=== PATIENT | female | born 1955 | race Caucasian/White ===

== ENCOUNTER 2019-10-06 15:33 | Emergency (ER) | payer MEDICARE ==
[2019-10-06 16:32] LABS: BASOPHILS # (AUTO) 0.1 10^3/uL (0.0-0.1); BASOPHILS % (AUTO) 0.7 %; EOSINOPHILS # (AUTO) 0.2 10^3/uL (0.0-0.7); HGB - HEMOGLOBIN 16.4 g/dL (12.0-16.0); LYMPHOCYTES # (AUTO) 1.6 10^3/uL (1.5-3.5); LYMPHOCYTES % (AUTO) 20.9 %; MEAN CORPUSCULAR HEMOGLOBIN 32.9 pg (27.0-31.0); MEAN CORPUSCULAR HGB CONC 33.5 g/dL (32.0-36.0); MEAN PLATELET VOLUME 8.7 fL (7.9-10.8); MONOCYTES # (AUTO) 0.9 10^3/uL (0.0-1.0); MONOCYTES % (AUTO) 11.5 %; NEUTROPHILS # (AUTO) 4.8 10^3/uL (1.5-6.6); NEUTROPHILS % (AUTO) 63.4 %; PLT - PLATELET COUNT 363 10^3/uL (130-450); RED BLOOD COUNT 4.99 10^6/uL (4.20-5.40); RED CELL DISTRIBUTION WIDTH 13.9 % (12.0-15.0); WHITE BLOOD COUNT 7.6 x10^3/uL (4.8-10.8)
[2019-10-06 16:40] LABS: PT - PROTHROMBIN TIME 11.2 secs (9.9-12.6)
[2019-10-06 16:46] LABS: ALBUMIN 4.2 g/dL (3.2-5.5); ALBUMIN/GLOBULIN RATIO 1.1 (1.0-2.2); BILIRUBIN,TOTAL 0.7 mg/dL (0.2-1.0); CALCIUM 9.5 mg/dL (8.5-10.3); CREATININE 0.8 mg/dL (0.4-1.0); TOTAL PROTEIN 8.2 g/dL (6.7-8.2)
[2019-10-06 16:47] LABS: PARTIAL THROMBOPLASTIN TIME 35.4 secs (24.9-33.3)
[2019-10-06] MEDS ORDERED: oxyCODONE 5 MG TABLET PO STA ×2 (17:23→19:11)
--- NOTE | 2019-10-06 17:27 | ED Physician Documentation ---
PD HPI ABD PAIN - Stated complaint Stated Complaint: DIARRHEA - Chief complaint Chief Complaint: Abd Pain - History obtained from History obtained from: Patient - History of Present Illness Timing - onset: Other (64-year-old woman with remote history of breast cancer, non-Hodgkin's lymphoma, and perforated viscus with ileostomy subsequently reversed, that was about 5 years ago. Last 5 days she started to have nausea with one episode of vomiting, has not vomited since but then developed diarrhea which over the last 2 to 3 days has been bloody. She denies fevers or chills. She had diffuse abdominal pain yesterday which now is on the left lower quadrant and pelvis. Last colonoscopy was about 5 years ago with some polyps, otherwise negative.) Review of Systems Ten Systems: 10 systems reviewed and negative Constitutional: reports: Fatigue. denies: Fever, Chills Cardiac: denies: Chest pain / pressure, Palpitations Respiratory: denies: Dyspnea, Cough PD PAST MEDICAL HISTORY - Present Medications Home Medications: Ambulatory Orders Medication Instructions Recorded Confirmed Amox/Clav 875/125 [Augmentin] 1 each PO Q12H #20 tablet 10/06/19 Oxycodone HCl/Acetaminophen 1 - 2 each PO Q6H PRN #14 tablet 10/06/19 [Percocet 5-325 mg Tablet] - Allergies Allergies/Adverse Reactions: Allergies Allergy/AdvReac Type Severity Reaction Status Date / Time No Known Drug Allergies Allergy Verified 10/06/19 17:08 PD ED PE NORMAL - Vitals Vital signs reviewed: Yes - General General: Alert and oriented X 3, No acute distress - HEENT HEENT: PERRL, EOMI - Neck Neck: Supple, no meningeal sign, No bony TTP - Cardiac Cardiac: RRR, No murmur - Respiratory Respiratory: No respiratory distress, Other (rhonchorous) - Abdomen Abdomen: Other (Hyperactive bowel tones, TTP LLQ, no surgical signs) - Back Back: No CVA TTP, No spinal TTP - Derm Derm: Normal color, Warm and dry - Extremities Extremities: No edema, No calf tenderness / cord - Neuro Neuro: Alert and oriented X 3, Normal speech Results - Vitals Vitals: Vital Signs - 24 hr 10/06/19 10/06/19 16:00 18:43 Temperature 37.1 C 36.7 C Heart Rate 102 H 99 Respiratory 18 20 Rate Blood Pressure 144/91 H 134/95 H O2 Saturation 99 95 Oxygen O2 Source Room air - Labs Labs: Laboratory Tests 10/06/19 10/06/19 10/06/19 16:20 16:20 16:20 WBC 7.6 RBC 4.99 Hgb 16.4 H Hct 48.9 H MCV 98.0 MCH 32.9 H MCHC 33.5 RDW 13.9 Plt Count 363 MPV 8.7 Neut # (Auto) 4.8 Lymph # (Auto) 1.6 [place] # (Auto) 0.9 Eos # (Auto) 0.2 Baso # (Auto) 0.1 Absolute Nucleated RBC 0.00 Nucleated RBC % 0.0 PT 11.2 INR 1.0 APTT 35.4 H Sodium Potassium Chloride Carbon Dioxide Anion Gap BUN Creatinine Estimated GFR (MDRD) Glucose Calcium Total Bilirubin AST ALT Alkaline Phosphatase Total Protein Albumin Globulin Albumin/Globulin Ratio Lipase Urine Color Urine Clarity Urine pH Ur Specific [place] Urine Protein Urine Glucose (UA) Urine Ketones Urine Occult Blood Urine Nitrite Urine Bilirubin Urine Urobilinogen Ur Leukocyte Esterase Ur Microscopic Review Urine Culture Comments Blood Type AB POSITIVE Antibody Screen NEGATIVE 10/06/19 10/06/19 16:20 17:18 WBC RBC Hgb Hct MCV MCH MCHC RDW Plt Count MPV Neut # (Auto) Lymph # (Auto) [place] # (Auto) Eos # (Auto) Baso # (Auto) Absolute Nucleated RBC Nucleated RBC % PT INR APTT Sodium 135 Potassium 4.1 Chloride 99 L Carbon Dioxide 26 Anion Gap 10.0 BUN 12 Creatinine 0.8 Estimated GFR (MDRD) 72 L Glucose 99 Calcium 9.5 Total Bilirubin 0.7 AST 21 ALT 18 Alkaline Phosphatase 99 Total Protein 8.2 Albumin 4.2 Globulin 4.0 Albumin/Globulin Ratio 1.1 Lipase 30 Urine Color YELLOW Urine Clarity CLEAR Urine pH 7.5 Ur Specific [place] 1.015 Urine Protein NEGATIVE Urine Glucose (UA) NEGATIVE Urine Ketones NEGATIVE Urine Occult Blood NEGATIVE Urine Nitrite NEGATIVE Urine Bilirubin NEGATIVE Urine Urobilinogen 0.2 (NORMAL) Ur Leukocyte Esterase NEGATIVE Ur Microscopic Review NOT INDICATED Urine Culture Comments NOT INDICATED Blood Type Antibody Screen - Rads (name of study) CT A/P Radiology: EMP read contemporaneously (Findings consistent with diverticulitis, indeterminate 17 mm right adrenal lesion.) PD MEDICAL DECISION MAKING - ED course ED course: 64-year-old woman with vomiting and diarrhea as well as abdominal pain. Found on work-up to have diverticulitis. Cipro and Flagyl was considered for outpatient treatment but she drinks almost daily and wanted something else so Augmentin was chosen. Follow-up colonoscopy and imaging on the adrenal lesion were discussed with the patient and her son. Departure - Departure Disposition: 01 Home, Self Care Clinical Impression: Diverticulitis of gastrointestinal tract Condition: Good Record reviewed to determine appropriate education?: Yes Instructions: ED Diverticulitis Prescriptions: Amox/Clav 875/125 [Augmentin] 1 each PO Q12H #20 tablet Oxycodone HCl/Acetaminophen [Percocet 5-325 mg Tablet] 1 - 2 each PO Q6H PRN #14 tablet PRN Reason: pain Comments: As discussed, you will need a follow-up colonoscopy in about 8 weeks, talk with your doctor about a referral for this, also you have a small mass on your adrenal gland, talk with your doctor about further imaging for this. Return for new worsening symptoms.
[2019-10-06] MEDS ORDERED: IOVERSOL 320 100 ML VIAL IVP ONE ×2 (17:29→18:21)
[2019-10-06 17:44] LABS: BILIRUBIN,URINE NEGATIVE (NEGATIVE); GLUCOSE, URINE (UA) NEGATIVE (NEGATIVE); KETONES,URINE (UA) NEGATIVE (NEGATIVE); LEUKOCYTE ESTERASE, URINE NEGATIVE (NEGATIVE); NITRITE,URINE NEGATIVE (NEGATIVE); OCCULT BLOOD,URINE NEGATIVE (NEGATIVE); PH,URINE 7.5 PH (5.0-7.5); PROTEIN,URINE NEGATIVE (NEGATIVE); UROBILINOGEN,URINE 0.2 (NORMAL) E.U./dL (NORMAL)
[2019-10-06 17:49] LABS: CLARITY,URINE CLEAR (CLEAR)
[2019-10-06 18:44] VITALS: BP 134/95
--- NOTE | 2019-10-06 18:54 | CT Report ---
Reason: IV and PO, abd pain, LLQ pain Procedure Date: 10/06/2019 Accession Number: [id number] / [id number] Procedure: CT - Abdomen/Pelvis W CPT Code: Final Report FULL RESULT: EXAM: CT ABDOMEN AND PELVIS EXAM DATE: 10/06/2019 06:19 PM. CLINICAL HISTORY: IV and PO, abd pain, LLQ pain. COMPARISONS: None. TECHNIQUE: Routine helical CT imaging was performed through the abdomen and pelvis. IV contrast: OPTI 320 90ML. Enteric contrast: No. Reconstructions: Coronal and sagittal. In accordance with CT protocol optimization, one or more of the following dose reduction techniques were utilized for this exam: automated exposure control, adjustment of mA and/or KV based on patient size, or use of iterative reconstructive technique. FINDINGS: Lung Bases: A small hiatal hernia limited to the posterior mediastinum. Mild bilateral dependent atelectasis and scarring. Liver: Normal. No masses. Gallbladder/Bile Ducts: Unremarkable. Spleen: Normal. Pancreas: Normal. Adrenal Glands: A 17 mm isodense lesion in right adrenal gland with attenuation of 58 HU. Further evaluation to be considered on CT or MR adrenal mass protocol. Kidneys: Normal. No masses or hydronephrosis. Peritoneal Cavity/Bowel: Submucosal edema/colonic wall thickening and multiple colonic diverticuli involving the splenic flexure (image 31 on series 5). Findings are concerning for acute diverticulitis. Underlying colonic mass is not likely, however cannot be completely excluded. Normal appendix in right lower quadrant. Pelvic Organs: Status post hysterectomy. Normal-appearing ovaries. Vasculature: No aneurysms or other significant abnormality. Bones: Chronic appearing anterior wedge compression fracture deformity of L1 vertebral body with 50% loss of vertical body height. Other: None. IMPRESSION: Submucosal edema/colonic wall thickening and multiple colonic diverticuli involving splenic flexure. Findings concerning for acute diverticulitis. Underlying colonic mass is not likely, however cannot be completely excluded. An indeterminate 17 mm right adrenal lesion. Further evaluation is recommended on CT or MR adrenal mass protocol. A small hiatal hernia. RADIA
[2019-10-06] MEDS ORDERED: AMOX/CLAV 875 MG/125 MG TABLET PO STA (19:11)
== END 2019-10-06 19:38 | disposition home or self-care (01) ==
LOC: ED 15:33
DX: K57.32 Diverticulitis of large intestine without perforation or abscess without bleeding (principal); E27.8 Other specified disorders of adrenal gland; K44.9 Diaphragmatic hernia without obstruction or gangrene; Z85.3 Personal history of malignant neoplasm of breast; Z85.72 Personal history of non-Hodgkin lymphomas; Z86.010 Personal history of colon polyps
CPT/HCPCS: 36415; 74177; 80053; 81003; 83690; 85025; 85610; 85730; 86850; 86900; 86901; 99284; A9270; Q9967; 81001; 87086

== ENCOUNTER 2021-11-10 15:31 | Emergency (ER) | payer MEDICARE ==
--- NOTE | 2021-11-10 16:26 | ED Physician Documentation ---
History of Present Illness - Stated complaint Stated Complaint: NECK PX, SWOLLEN LEGS FEET,FEMALE - Chief complaint Chief Complaint: Wound - Additonal information Additional information: 66-year-old female presents emergency department for evaluation of 2 concerns 1. She is reporting bilateral lower extremity edema that has been getting progressively worse for 1 month. She reports in the morning when she wakes up it is tolerable however as the day progresses she finds that her legs are more swollen and more painful. She is denying any chest pain or shortness of air. Does not have a history of congestive heart failure and does not take any diuretic. 2. Her concern is that she has had these lesions on her external labia for about 1 year. Her left labia has a large swollen painful cyst that began around [place] last year. Her right labia has a superficial ulceration that sometimes drains purulence that is been present about 3 months. She states that she has talked to her primary care doctor about this but is unclear what the determination of the concern was. She just wants a second opinion in the emergency department. Review of Systems Constitutional: denies: Fever, Chills Eyes: reports: Reviewed and negative Nose: reports: Reviewed and negative Throat: reports: Reviewed and negative Cardiac: reports: Pedal edema. 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 - Present Medications Home Medications: Ambulatory Orders Medication Instructions Recorded Confirmed Amox/Clav 875/125 [Augmentin] 1 each PO Q12H #20 tablet 10/06/19 Oxycodone HCl/Acetaminophen 1 - 2 each PO Q6H PRN #14 tablet 10/06/19 [Percocet 5-325 mg Tablet] - Allergies Allergies/Adverse Reactions: Allergies Allergy/AdvReac Type Severity Reaction Status Date / Time No Known Drug Allergies Allergy Verified 11/10/21 15:44 - Social History Does the pt smoke?: Yes Smoking Status: Current every day smoker Does the pt drink ETOH?: Yes Does the pt have substance abuse?: No PD ED PE NORMAL - General General: Alert and oriented X 3, No acute distress - HEENT HEENT: PERRL - Neck Neck: Supple, no meningeal sign, No adenopathy, Thyroid normal, No JVD - Cardiac Cardiac: RRR, No murmur, No gallop, Strong equal pulses, Other (Superficial pitting edema bilateral lower extremities does not extend to the calves) - Respiratory Respiratory: No respiratory distress, Clear bilaterally - Abdomen Abdomen: Normal bowel sounds, Soft - Female Female : Early Intervention Specialist present, Other (2 cm soft fluctuant left labia majora cyst mildly tender to touch but no erythema or drainage. Right labia has a shallow 0.5 cm painful lesion. Clear serous drainage no surrounding erythema) - Derm Derm: Normal color, Warm and dry - Extremities Extremities: No deformity - Neuro Neuro: Alert and oriented X 3 Eye Opening: Spontaneous Motor: Obeys Commands Verbal: Oriented GCS Score: 15 Results - Vitals Vitals: Vital Signs - 24 hr 11/10/21 15:38 Temperature 36.5 C Heart Rate 96 Respiratory 20 Rate Blood Pressure 146/96 H O2 Saturation 94 Oxygen O2 Source Room air - EKG (time done) 1626 Rate: Rate (enter#) (86) Rhythm: NSR [place]: Normal Intervals: Prolonged DC QRS: Normal Ischemia: Normal ST segments Compare to prior EKG: Old EKG unavailable Computer interpretation: Agree with computer - Labs Labs: Laboratory Tests 11/10/21 11/10/21 11/10/21 16:26 16:26 16:26 WBC 9.4 RBC 4.43 Hgb 15.2 Hct 44.8 MCV 101.1 H MCH 34.3 H MCHC 33.9 RDW 13.5 Plt Count 319 MPV 9.1 Neut # (Auto) 6.8 H Lymph # (Auto) 1.4 L [place] # (Auto) 0.9 Eos # (Auto) 0.3 Baso # (Auto) 0.1 Absolute Nucleated RBC 0.00 Nucleated RBC % 0.0 Sodium 132 L Potassium 4.0 Chloride 98 L Carbon Dioxide 26 Anion Gap 8.0 BUN 8 Creatinine 0.8 Estimated GFR (MDRD) 72 L Glucose 108 H Calcium 9.2 Total Bilirubin 0.5 AST 18 ALT 16 Alkaline Phosphatase 86 B-Natriuretic Peptide 25 Total Protein 7.6 Albumin 3.9 Globulin 3.7 Albumin/Globulin Ratio 1.1 Lipase 31 - Rads (name of study) CXR Radiology: Final report received (No acute cardiopulmonary process) PD MEDICAL DECISION MAKING - ED course Complexity details: reviewed results, re-evaluated patient, considered differential, d/w patient ED course: 66-year-old female presents emergency department for evaluation of lower extremity swelling that she states is mostly absent in the morning but gets worse during the day making difficulty walking. She has no chest pain or shortness of air. She states she discussed with her primary care doctor and was told she had gout. She is not on any diuretic and presents with no hypoxia or labored breathing. Her screening EKG is sinus rhythm without any ischemic changes. High-sensitivity troponin and BNP are both negative. Chest x-ray is without acute focal opacity or findings suggestive of heart failure. I discussed with the patient that she may benefit from elevation of her legs at night and/or wearing compression stockings during the day. If this does not improve her swelling that her primary doctor can consider initiating a low-dose diuretic such as hydrochlorothiazide. She also requested evaluation of labia majora lesions that have been present for a year. She has a large cyst on her left labia majora. She also has a very shallow ulceration on her right labia that she states has been present for 3 months but appears to be rather new and likely mildly ingrown hair follicle which has subsequently opened and drained a small amount of serous fluid. I discussed with the patient that I would like her to be seen at a csr technician office for evaluation of the cyst. Given the duration for which she has had it acute intervention today is not warranted. She has no findings to suggest a Bartholin's abscess nor does she have findings to suggest any infection. Departure - Departure Disposition: 01 Home, Self Care Clinical Impression: Pedal edema, Labial cyst Condition: Stable Record reviewed to determine appropriate education?: Yes Comments: Inessa you were seen in the emergency department today swelling in your lower legs that gets worse as the day goes on. Your screening EKG, chest x-ray and labs are all essentially normal. You are not in heart failure. I do recommend that you elevate your legs as much as you can at night. During the daytime I would like you to wear compression stockings. If this does not make the swelling better than your primary doctor may want to consider initiating a low dose water pill. You do have a large cyst on your left labia that is been present for nearly a year. Your primary doctor should make a referral for you to a csr technician to determine if this is something that should be drained or removed.
--- NOTE | 2021-11-10 16:28 | XRAY Report ---
PROCEDURE: Chest 1 View X-Ray INDICATIONS: Chest Pain TECHNIQUE: One view of the chest was acquired. COMPARISON: None FINDINGS: Surgical changes and devices: Surgical clips in the left axilla.. Lungs and pleura: No pleural effusions or pneumothorax. Lungs are clear. Mediastinum: Mediastinal contours appear normal. Heart size is normal. Bones and chest wall: No suspicious bony lesions. Overlying soft tissues appear unremarkable. IMPRESSION: No acute cardiopulmonary disease process. Reviewed by: Khadra Holland MD, PhD on 11/10/2021 4:27 PM PST Approved by: Khadra Holland MD, PhD on 11/10/2021 4:27 PM PST Station ID: [id number]
[2021-11-10 16:30] LABS: BASOPHILS # (AUTO) 0.1 10^3/uL (0.0-0.1); BASOPHILS % (AUTO) 0.6 %; EOSINOPHILS # (AUTO) 0.3 10^3/uL (0.0-0.7); HCT - HEMATOCRIT 44.8 % (37.0-47.0); HGB - HEMOGLOBIN 15.2 g/dL (12.0-16.0); LYMPHOCYTES # (AUTO) 1.4 10^3/uL (1.5-3.5); LYMPHOCYTES % (AUTO) 15.2 %; MEAN CORPUSCULAR HEMOGLOBIN 34.3 pg (27.0-31.0); MEAN CORPUSCULAR HGB CONC 33.9 g/dL (32.0-36.0); MEAN CORPUSCULAR VOLUME 101.1 fL (81.0-99.0); MEAN PLATELET VOLUME 9.1 fL (7.9-10.8); MONOCYTES # (AUTO) 0.9 10^3/uL (0.0-1.0); NEUTROPHILS # (AUTO) 6.8 10^3/uL (1.5-6.6); NEUTROPHILS % (AUTO) 71.9 %; PLT - PLATELET COUNT 319 10^3/uL (130-450); RED BLOOD COUNT 4.43 10^6/uL (4.20-5.40); RED CELL DISTRIBUTION WIDTH 13.5 % (12.0-15.0); WHITE BLOOD COUNT 9.4 x10^3/uL (4.8-10.8)
[2021-11-10 16:43] LABS: ALBUMIN 3.9 g/dL (3.2-5.5); ALBUMIN/GLOBULIN RATIO 1.1 (1.0-2.2); BILIRUBIN,TOTAL 0.5 mg/dL (0.2-1.0); CALCIUM 9.2 mg/dL (8.5-10.3); CREATININE 0.8 mg/dL (0.4-1.0); TOTAL PROTEIN 7.6 g/dL (6.7-8.2)
[2021-11-10 17:36] VITALS: BP 139/89
== END 2021-11-10 17:35 | disposition home or self-care (01) ==
LOC: ED 15:31
DX: R60.0 Localized edema (principal); I10 Essential (primary) hypertension; F17.200 Nicotine dependence, unspecified, uncomplicated; J44.9 Chronic obstructive pulmonary disease, unspecified; N90.7 Vulvar cyst
CPT/HCPCS: 36415; 80053; 83690; 83880; 85025; 93005; 99283; 99284

== ENCOUNTER 2021-11-27 08:05 | Outpatient (CLI) | payer MEDICARE | END 2021-11-27 08:06 | disposition EMS.NT | LOC: EMS 08:05 | DX: M25.561 Pain in right knee (principal) ==

== ENCOUNTER 2021-11-27 16:28 | Emergency (ER) | payer MEDICARE ==
[2021-11-27] MEDS ORDERED: oxyCODONE 5 MG TABLET PO STA (17:13)
--- NOTE | 2021-11-27 17:33 | ED Physician Documentation ---
History of Present Illness - Stated complaint Stated Complaint: R KNEE PX - Chief complaint Chief Complaint: Ext Problem - History obtained from History obtained from: Patient - History of Present Illness Timing: Today Pain level max: 10 Pain level now: 10 - Additonal information Additional information: Patient is a 66-year-old female who complains of right knee pain. 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 This started about 2 AM. Worse with movement and walking, better with rest. She states she normally has Percocet at home but ran out. No fevers. No chills. No trauma. Denies any falls. 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 - Present Medications Home Medications: Ambulatory Orders Medication Instructions Recorded Confirmed Amox/Clav 875/125 [Augmentin] 1 each PO Q12H #20 tablet 10/06/19 Oxycodone HCl/Acetaminophen 1 - 2 each PO Q6H PRN #14 tablet 10/06/19 [Percocet 5-325 mg Tablet] Oxycodone HCl/Acetaminophen 1 - 2 each PO Q6H PRN #14 tablet 11/27/21 [Percocet 5-325 mg Tablet] - Allergies Allergies/Adverse Reactions: Allergies Allergy/AdvReac Type Severity Reaction Status Date / Time No Known Drug Allergies Allergy Verified 11/27/21 16:33 - Social History Does the pt smoke?: Yes Smoking Status: Current every day smoker Does the pt drink ETOH?: Yes Does the pt have substance abuse?: No PD ED PE NORMAL - Vitals Vital signs reviewed: Yes - General General: Alert and oriented X 3, No acute distress - HEENT HEENT: Moist mucous membranes - Neck Neck: Supple, no meningeal sign - Cardiac Cardiac: RRR, Strong equal pulses - Respiratory Respiratory: No respiratory distress, Clear bilaterally - Abdomen Abdomen: Soft, Non tender, Non distended - Derm Derm: Warm and dry - Extremities Extremities: Other (Right knee with a moderate joint effusion. Mild swelling. No skin changes. Neurovascular intact. Limited range of motion secondary to pain. No bony tenderness) - Neuro Neuro: Alert and oriented X 3 Results - Vitals Vitals: Vital Signs - 24 hr 11/27/21 11/27/21 16:33 18:56 Temperature 36.5 C Heart Rate 122 H 126 H Respiratory 16 21 Rate Blood Pressure 138/86 H 119/83 H O2 Saturation 95 95 Oxygen O2 Source Room air - Rads (name of study) Right knee x-ray Radiology: Final report received, EMP read contemporaneously, See rad report PD MEDICAL DECISION MAKING - ED course Complexity details: reviewed results, re-evaluated patient, considered differential, d/w patient ED course: 66-year-old female with a left knee effusion. This appears to be causing pain. Pain well controlled with pain medication. Given crutches. She has a walker at home. Compression applied to the knee as well. Neurovascularly intact. We will have the patient follow-up with her doctor for further care. Patient counseled regarding signs and symptoms for which I believe and urgent re-evaluation would be necessary. Patient with good understanding of and agreement to plan and is comfortable going home at this time This document was made in part using voice recognition software. While efforts are made to proofread this document, sound alike and grammatical errors may occur. IMPRESSION: Moderate-severe tricompartmental osteoarthrosis of the right knee with significant joint space loss of the medial femorotibial compartment. There is an associated moderate-sized right knee joint effusion. No acute fracture or dislocation. Departure - Departure Disposition: 01 Home, Self Care Clinical Impression: Knee effusion, right Condition: Good Instructions: ED Effusion Knee Follow-Up: Provider,Other [Primary Care Provider] - Within 1 week [facility]opedic [facility] [Provider Group] Prescriptions: Oxycodone HCl/Acetaminophen [Percocet 5-325 mg Tablet] 1 - 2 each PO Q6H PRN #14 tablet PRN Reason: pain Comments: Please follow-up with your doctor for further care. Your x-ray today shows arthritis and a knee effusion. Your prescriptions were sent to [facility] in [place]. Limit weightbearing as much as possible on that leg until the ef fusion has decreased. I am prescribing a short course of narcotic pain medication for you. These are potentially dangerous and addictive medications that should be used carefully. These medications may constipate you. Take an qirn-gum-coepknl stool softener (docusate) twice daily with plenty of water while taking these medications. If you go 24 hours without a bowel movement, take [id number] miralax, per package instructions. Do not drink or drive while taking these medications. If you received narcotic or sedating medications while in the emergency department, do not drive for 24 hours. Store this medication in a safe, secure place and out of reach of children. It is a violation of federal law to give or sell this medication to another person or to use in a manner other than prescribed. The ED will not refill narcotic prescriptions, including prescriptions lost or stolen. To dispose of unwanted medications: 1. [facility] [address] in [place] has a medication drop box. They accept prescription medications (in pill form) Wednesday through Wednesday 9:00 a.m. to 5:00 p.m. 2. The [facility] accepts prescription medications (in pill form only) for disposal year round. Call for more information. 3. Contact the [facility] for the next [facility] sponsored prescription drug collection event. , [phone], or [phone]; Discharge Date/Time: 11/27/21 19:31
--- NOTE | 2021-11-27 18:08 | XRAY Report ---
PROCEDURE: Knee 4 View RT INDICATIONS: r knee pain, effusion, no trauma TECHNIQUE: 4 views of the right knee(s) were acquired. COMPARISON: None. FINDINGS: Bones: No acute fractures or dislocations. No suspicious bony lesions. Moderate-severe tricompartme ntal osteoarthrosis of the right knee with significant joint space narrowing of the medial femorotibi al compartment. Prominent marginal osteophytes. Soft tissues: There is a moderate-sized suprapatellar joint effusion. No suspicious soft tissue calc ifications. IMPRESSION: Moderate-severe tricompartmental osteoarthrosis of the right knee with significant joint space loss of the medial femorotibial compartment. There is an associated moderate-sized right knee joint effusion. No acute fracture or dislocation. Reviewed by: Stan Tim MD on 11/27/2021 6:06 PM PST Approved by: Stan Tim MD on 11/27/2021 6:06 PM PST Station ID: [id number]
[2021-11-27 18:58] VITALS: BP 119/83
[2021-11-27] MEDS ORDERED: KETOROLAC 60 MG/2 ML VIAL IM STA (18:59)
[2021-11-27] MEDS ORDERED: MORPHINE 2 MG/ML CARPUJECT IM STA (19:29)
== END 2021-11-27 19:31 | disposition home or self-care (01) ==
LOC: ED 16:28
DX: M25.461 Effusion, right knee (principal); M17.11 Unilateral primary osteoarthritis, right knee; I10 Essential (primary) hypertension; F17.200 Nicotine dependence, unspecified, uncomplicated
CPT/HCPCS: 73564; 96372; 99283; 99284; A9270